=== PATIENT | female | born 1995 | race Caucasian/White ===

== ENCOUNTER 2020-11-12 05:43 | Emergency (ER) | payer MEDICAID ==
[~2020-11-12] VITALS: Ht 157.5 cm; Wt 61.7 kg
[2020-11-12 05:50] VITALS: Ht 157.5 cm; Wt 61.7 kg
[2020-11-12 06:35] LABS: BASOPHIL % 0.8 % (0.2-1.3); PLATELET COUNT 373 x10^3mcL (179-408)
[2020-11-12 07:05] LABS: rbc morphology (normal/abnorm) NORMAL (NORMAL)
[2020-11-12 07:16] LABS: ALBUMIN 4.4 g/dL (3.4-5.0); ALKALINE PHOSPHATASE 65 U/L (46-116); ALT/SGPT 20 U/L (14-59); AST/SGOT 13 U/L (15-37); CALCIUM 9.4 mg/dL (8.5-10.1); CARBON DIOXIDE 25.4 mmol/L (21-32); CHLORIDE SERUM 104 mmol/L (98-107); GFR1 > 60 mL/min; GLUCOSE SERUM 115 mg/dL (74-106); LIPASE 107 IU/L (73-393); POTASSIUM SERUM 3.6 mmol/L (3.5-5.1); SODIUM SERUM 142 mmol/L (136-145); TOTAL PROTEIN, SERUM 7.5 g/dL (6.4-8.2)
[2020-11-12] MEDS ORDERED: ULTRAM50 MG PO (07:28)
[2020-11-12] MEDS ORDERED: IBU600 M2 PO (07:28)
[2020-11-12 07:47] VITALS: BP 120/71
== END 2020-11-12 07:47 | disposition home or self-care (01) ==
LOC: ED 05:43
DX: N94.6 Dysmenorrhea, unspecified (principal); J45.909 Unspecified asthma, uncomplicated
CPT/HCPCS: J1885; Q0162